=== PATIENT | male | born 1970 | race Caucasian/White ===

== ENCOUNTER 2018-01-04 09:01 | Emergency (ER) | payer SELFPAY ==
[~2018-01-04] VITALS: Ht 182.9 cm; Wt 109.3 kg
[2018-01-04 09:05] VITALS: BP 117/53
--- NOTE | 2018-01-04 09:30 | NUR ---
PATIENT PRESENTS TO ED WITH c/o multiple wounds throughout body that started approx 1 week ago. Patient denies any recent fevers or chills. being self treated with OCT antibiotic cream, not working. AAOX4 WITH EVEN AND STEADY GAIT; LUNGS CLEAR BL; HR EVEN AND REGULAR; PT DENIES ANY FEVER, CP, SOB, OR COUGH AT THIS TIME; DENIES N/V/D; MULTIPLE WOUND SITE FROM HEAD, BACK, BUTTOCK, BUE, BLE, FEET, SOME OF THEM WITH YELLOW PLUS, REDNESS, PATIENT STATES PAIN OF 10/10 AT THIS TIME; VSS; PATIENT POSITIONED FOR COMFORT; HOB ELEVATED; BEDRAILS UP X2; BED DOWN. ER MD MADE AWARE OF PT STATUS.
--- NOTE | 2018-01-04 10:06 | NUR ---
Patient being evaluated by physician at bedside.
[2018-01-04] MEDS ORDERED: KETOROLAC 60 MG/2 ML VIAL IM ONE (10:10)
--- NOTE | 2018-01-04 10:15 | NUR ---
WOUND CARE DONE AT BEDSIDE.
[2018-01-04 10:52] VITALS: BP 108/56
--- NOTE | 2018-01-04 10:52 | NUR ---
Patient discharged with v/s stable. Written and verbal after care instructions given and explained. Patient alert, oriented and verbalized understanding of instructions. Ambulatory with steady gait. All questions addressed prior to discharge. ID band removed. Patient advised to follow up with PMD. Rx of BACTRIM, KEFLEX, MOTRIN given. Patient educated on indication of medication including possible reaction and side effects. Opportunity to ask questions provided and answered.
== END 2018-01-04 10:52 | disposition home or self-care (01) ==
LOC: MED 09:01
DX: L03.115 Cellulitis of right lower limb (principal); F17.290 Nicotine dependence, other tobacco product, uncomplicated; Z88.6 Allergy status to analgesic agent
CPT/HCPCS: 96372; 99283; J1885

== ENCOUNTER 2018-02-14 05:00 | Emergency (ER) | payer MEDICAID ==
[~2018-02-14] VITALS: Ht 182.9 cm; Wt 108.9 kg
[2018-02-14 05:10] VITALS: BP 132/86
--- NOTE | 2018-02-14 05:10 | NUR ---
PT TO ER BED 3
--- NOTE | 2018-02-14 05:15 | NUR ---
47 YO MALE, AMBULATING @ BEDSIDE. NO PMH. PT IS 0.5 PACK/DAY SMOKER. ALLERGIES TO TYLENOL AND HYDROCODONE. PT COMING TO ER FOR C/O LEG PAIN. PT HAS BILATERAL LEG SWELLING PT AOX 4, DENIES NUMBNESS TINGLING. PT STATES HE IS ABLE TO BEAR WEIGHT ON LEGS BUT HAS INCREASING PAIN WHEN AMBULATING FOR LONG PERIODS OF TIME. LUNGS CLEAR TO AUSCULTATION ABD SOFT NON DISTENDED . PT VOIDING, BM 02/13/18. SKIN NON INTACT; OPEN WOUNDS TO R LATERAL LEG WELL L MEDIAL LEG. ER MD NOTIFIED. WILL CONTINUE TO OBSERVE.
[2018-02-14] MEDS ORDERED: KETOROLAC 60 MG/2 ML VIAL IM ONE (05:40)
--- NOTE | 2018-02-14 05:41 | NUR ---
PT OFFERED TORADOL FOR PAIN CONTROL, PT REFUSED MEDICATION. ER MD MADE AWARE. WILL CONTINUE TO MONITOR.
[2018-02-14] MEDS ORDERED: BACITRACIN OINT 500 UNITS/GM PKT TP ONE (06:00)
--- NOTE | 2018-02-14 06:04 | NUR ---
PER VERBAL ORDER FROM MD DOUGLAS, PT WOUNDS ON BILATERAL LEGS APPLIED WITH BACITRACIN, COVERED WITH NON ADHERENT DRESSING, AND WRAPPED WITH ROLLER GAUZE. +CSM BILATERALLY
[2018-02-14 06:09] VITALS: BP 132/86
--- NOTE | 2018-02-14 06:13 | NUR ---
Patient discharged with v/s stable. Written and verbal after care instructions given and explained. prescriptions given to patient. Patient verbalized understanding. Ambulatory with to home. All questions addressed prior to discharge. Advised to follow up with PMD.
== END 2018-02-14 06:23 | disposition home or self-care (01) ==
LOC: MED 05:00
DX: M89.8X6 Other specified disorders of bone, lower leg (principal); R03.0 Elevated blood-pressure reading, without diagnosis of hypertension; Z88.5 Allergy status to narcotic agent; Z88.6 Allergy status to analgesic agent
CPT/HCPCS: 73590; 99284; Q0092; J1885

== ENCOUNTER 2018-09-08 16:15 | Emergency (ER) | payer BC, MEDICAID ==
[~2018-09-08] VITALS: Ht 175.3 cm; Wt 99.3 kg
[2018-09-08 16:37] VITALS: BP 137/77
--- NOTE | 2018-09-08 18:22 | NUR ---
Patient ambulated to bed 1. RN evaluating patient at bedside.
--- NOTE | 2018-09-08 18:25 | NUR ---
C/O ABCESS TO R MIDDLE FINGER X 3DAYS, OPEN WOUND TO R BUTTOCKS X5 DAYS AND OPEN WOUND TO L NOSTRIL X1 DAY. STINGING PAIN, 10/21. PT REPORTS TAKING ALEVE WITH NO RELIEF. WOUND TO R MIDDLE FINGER IS CLOSED, AND RED WITH A WHITE PUSTULE. WOUND TO L NOSTRIL IS OPEN, MOIST AND RED, WOUND TO R BUTTOCKS IS RED AND DRY. PT DENIES N/V/D/FEVER. AAOX4 WITH EVEN AND STEADY GAIT; LUNGS CLEAR BL; HR EVEN AND REGULAR; PT DENIES ANY FEVER, CP, SOB, OR COUGH AT THIS TIME; VSS; PATIENT POSITIONED FOR COMFORT; HOB ELEVATED; BEDRAILS UP X1; BED DOWN. ER MD MADE AWARE OF PT STATUS.
--- NOTE | 2018-09-08 19:10 | NUR ---
ERMD AT BEDSIDE
[2018-09-08] MEDS ORDERED: SULFAMETH/TRIMETH DS 800/160MG 1 TAB PO ONE (19:20)
[2018-09-08] MEDS ORDERED: CEPHALEXIN 500 MG CAP PO ONE (19:20)
[2018-09-08] MEDS ORDERED: IBUPROFEN 600 MG TAB PO ONE (20:00)
--- NOTE | 2018-09-08 20:12 | NUR ---
Patient discharged with v/s stable. Written and verbal after care instructions given and explained. Patient alert, oriented and verbalized understanding of instructions. Ambulatory with steady gait. All questions addressed prior to discharge. ID band removed. Patient advised to follow up with PMD. Rx of IBUPROFEN, KEFLEX, AND BACTRIM given. Patient educated on indication of medication including possible reaction and side effects. Opportunity to ask questions provided and answered.
[2018-09-08 20:14] VITALS: BP 131/80
== END 2018-09-08 20:12 | disposition home or self-care (01) ==
LOC: MED 16:15
DX: J34.0 Abscess, furuncle and carbuncle of nose (principal); Z88.6 Allergy status to analgesic agent; Z88.5 Allergy status to narcotic agent
CPT/HCPCS: 81002; 99284

== ENCOUNTER 2019-03-26 12:48 | Emergency (ER) | payer BC, MEDICAID ==
[~2019-03-26] VITALS: Ht 182.9 cm; Wt 106.6 kg
[2019-03-26 12:57] VITALS: BP 139/80
--- NOTE | 2019-03-26 13:00 | NUR ---
PT AMBUALATED TO BED 7 WITH STEADY GAIT.
--- NOTE | 2019-03-26 13:08 | NUR ---
PT BIB SELF C/O HERPES FLARE UP X1 DAY. BURNING 10/10 PAIN AT THIS TIME. RED, BLISTERS AROUND LIPS. PT STATES "CUT" IN MOUTH CAUSING PAIN. PT STATES FIRST OUTBREAK X1 YEAR AGO. PT HAS NOT TAKEN ANY MEDICATIONS. PT SITTING IN BED POSITIONED FOR COMFORT. BED LOCKED AND IN LOW POSITION. VSS. MEDHX: DENIES ALLERGIES: VICODIN
[2019-03-26 13:27] VITALS: BP 139/80
--- NOTE | 2019-03-26 13:27 | NUR ---
Patient discharged with v/s stable. Written and verbal after care instructions given and explained. Patient alert, oriented and verbalized understanding of instructions. Ambulatory with steady gait. All questions addressed prior to discharge. ID band removed. Patient advised to follow up with PMD. Rx of ACYCLOVIR, NAPROSYN, AND LIDOCAINE given. Patient educated on indication of medication including possible reaction and side effects. Opportunity to ask questions provided and answered.
== END 2019-03-26 13:27 | disposition home or self-care (01) ==
LOC: MED 12:48
DX: B00.2 Herpesviral gingivostomatitis and pharyngotonsillitis (principal); I10 Essential (primary) hypertension; F17.200 Nicotine dependence, unspecified, uncomplicated; Z71.6 Tobacco abuse counseling; Z88.6 Allergy status to analgesic agent; Z88.5 Allergy status to narcotic agent
CPT/HCPCS: 99283

== ENCOUNTER 2019-07-07 09:50 | Emergency (ER) | payer SELFPAY ==
[~2019-07-07] VITALS: Ht 182.9 cm; Wt 97.5 kg
[2019-07-07 10:04] VITALS: BP 169/92
--- NOTE | 2019-07-07 10:09 | NUR ---
Patient ambulated to bed 1. RN evaluating patient at bedside.
--- NOTE | 2019-07-07 10:27 | NUR ---
C/O ABSCESS TO BOTH UPPER ARMS & ABDOMEN S/P HEROIN INJECTION X 3 WEEKS. MED HX: DRUG ABUSE . DENIES N/V/D; SKIN IS PINK/WARM/DRY; AAOX4 WITH EVEN AND STEADY GAIT; LUNGS CLEAR BL; HR EVEN AND REGULAR; PT DENIES ANY FEVER, CP, SOB, OR COUGH AT THIS TIME; PATIENT STATES PAIN OF 10/10 AT THIS TIME; VSS; PATIENT POSITIONED FOR COMFORT; HOB ELEVATED; BEDRAILS UP X2; BED DOWN. ER MD MADE AWARE OF PT STATUS.
--- NOTE | 2019-07-07 11:28 | NUR ---
Dr. Lugo is evaluating the patient at bedside.
[2019-07-07 11:57] VITALS: BP 139/97
--- NOTE | 2019-07-07 11:58 | NUR ---
Patient discharged with v/s stable. Written and verbal after care instructions given and explained. Patient alert, oriented and verbalized understanding of instructions. Ambulatory with steady gait. All questions addressed prior to discharge. ID band removed. Patient advised to follow up with PMD. Rx of keflex, motrin and bactrim given. Patient educated on indication of medication including possible reaction and side effects. Opportunity to ask questions provided and answered.
== END 2019-07-07 11:58 | disposition home or self-care (01) ==
LOC: MED 09:50
DX: L02.414 Cutaneous abscess of left upper limb (principal); L02.413 Cutaneous abscess of right upper limb; L03.114 Cellulitis of left upper limb; L03.113 Cellulitis of right upper limb; R07.9 Chest pain, unspecified; F17.210 Nicotine dependence, cigarettes, uncomplicated; Z88.6 Allergy status to analgesic agent; Z88.5 Allergy status to narcotic agent
CPT/HCPCS: 93005; 99283